=== PATIENT | female | born 1980 | race Caucasian/White ===

== ENCOUNTER 2016-08-06 11:44 | Emergency (ER) | payer SELFPAY ==
[~2016-08-06 11:44] MED LIST: AMOXICILLIN500 M1 PO; CYCLOBENZAPRINE10 M1 PO; CYCLOBENZAPRINE10 MG PO; FLEXERIL10 MG PO; GLIPIZIDE10 M2 PO; GLIPIZIDE5 M2 PO; GLUCOPHAGE500 M3 PO; METFORMIN HCL1000 M2 PO; METFORMIN HCL500 M2 PO; NAPROXEN PO; NO HOME MEDICATION XX; NO HOME MEDS; NORCO 5-325 TA1 EACH PO; NORCO 5/325 TAB1 TAB PO; NORCO 7.5-3251 EACH PO; PENICILLIN V P500 M1 PO; TRAMADOL HCL50 MG PO; ULTRAM50 M1 PO; ULTRAM50 MG PO
[2016-08-06] MEDS ORDERED: NORCO 5/3251 TAB PO (12:04)
[2016-08-06] MEDS ORDERED: IBUPROFEN600 M1 PO (12:04)
[2016-08-06] MEDS ORDERED: PENICILLIN V P500 M1 PO (12:04)
[2016-10-28] MEDS ORDERED: ANTIBIOTIC (06:01)
[2016-10-28] MEDS ORDERED: PENICILLIN V P500 M1 PO (06:02)
[2016-10-28] MEDS ORDERED: NORCO 5-325 TA1 EACH PO (06:11)
== END 2016-08-06 12:53 ==
LOC: EDMED 11:44
DX: K04.7 Periapical abscess without sinus (principal); E11.9 Type 2 diabetes mellitus without complications; Z79.899 Other long term (current) drug therapy